=== PATIENT | female | born 1970 | race Caucasian/White ===

== ENCOUNTER → 2020-05-15 | Outpatient (CLI) | payer OTHER ==
--- NOTE | 2020-05-15 13:21 | CT ---
EXAMINATION TYPE: CT sinus wo con DATE OF EXAM: 05/15/2020 COMPARISON: None HISTORY: Chronic sinusitis CT DLP: 615.[address] of the paranasal sinuses was performed in the axial and coronal planes. Bone and soft tissue settings are submitted. The paranasal sinuses demonstrate normal aeration and development. Mucoperiosteal thickening noted. No air-fluid levels identified. The osteal meatal units are patent bilaterally. Mild nasal septal deviation from right to left. No bony destructive changes are seen within the field of view. IMPRESSION: Mucoperiosteal thickening noted. No air-fluid levels identified.
== END | disposition home or self-care (01) ==
LOC: RADCTMAIN 12:56
PROVIDERS: ATTEND Otolaryngology
DX: J32.9 Chronic sinusitis, unspecified (principal)
CPT/HCPCS: 70486

== ENCOUNTER 2020-06-04 08:16 | Day surgery (SDC) | payer OTHER ==
[2020-06-02 10:50] VITALS: BMI 23.1
[~2020-06-04 08:16] MED LIST: DEXAMETHASONE SOD PHOSPHATE 10 MG/ML 1 ML VIAL IV ONE; FAMOTIDINE 20 MG/2 ML VIAL IV ONE; LACTATED RINGERS 1,000 ML IV SCH; LIDOCAINE 1% (10MG/ML) FOR IV START INTRADERMA PRN; ONDANSETRON 4 MG/2 ML VIAL IVP ONE; Pre Op ABX Message 1 EACH MISC MISCELLANE ONE
[2020-06-04] MEDS ORDERED: ONDANSETRON 4 MG/2 ML VIAL ONE (08:40)
[2020-06-04] MEDS ORDERED: OXYMETAZOLINE 0.05% NASL SPRAY 1 SPRAY BOTTLE ONE (08:40)
[2020-06-04] MEDS ORDERED: MIDAZOLAM 2 MG/2 ML VIAL IV ONE (08:55)
[2020-06-04] MEDS ORDERED: SCOPOLAMINE 1.5MG/72HR PATCH TRANSDERM ONE (09:48)
[2020-06-04] MEDS ORDERED: fentaNYL (PF) 50 MCG/ML 2 ML AMP ONE (10:06)
[2020-06-04] MEDS ORDERED: LIDOCAINE 1% INJ 10MG/ML (20 ML MDV) ONE (10:06)
[2020-06-04] MEDS ORDERED: DEXAMETHASONE SOD PHOSPHATE 10 MG/ML 1 ML VIAL ONE (10:06)
[2020-06-04] MEDS ORDERED: SUCCINYLCHOLINE CHLORIDE 100 MG/5 ML SYR IV ONE (10:06)
[2020-06-04] MEDS ORDERED: METOPROLOL TARTRATE 5 MG/5 ML VIAL IVP ONE (10:06)
[2020-06-04] MEDS ORDERED: PROPOFOL 10 MG/ML 20 ML VIAL IV ONE (10:06)
[2020-06-04] MEDS ORDERED: MIDAZOLAM 2 MG/2 ML VIAL ONE (10:06)
[2020-06-04] MEDS ORDERED: LIDOCAINE 1%-EPI 1:100,000 20 ML VIAL SQ ONE ×2 (10:32)
[2020-06-04] MEDS ORDERED: EPINEPHrine 1 MG/ML (MDV) 30 ML VIAL IRRIGATION ONE (10:32)
[2020-06-04] MEDS ORDERED: FLUORESCEIN STRIPS 1 MG STRIP MISCELLANE ONE (10:32)
[2020-06-04] MEDS ORDERED: BUPIVACAINE (PF) 0.5% 30 ML VIAL SQ ONE ×2 (10:32)
[2020-06-04] MEDS ORDERED: FERRIC SUBSULFATE (MONSELS) JAR TOPICAL ONE (10:47)
[2020-06-04] MEDS: HYDROmorphone 0.5 MG/0.5 ML SYRINGE IVP PRN ×2 (11:46→11:52)
[2020-06-04] MEDS ORDERED: diphenhydrAMINE 50 MG/ML 1 ML VIAL IVP ONE (11:54)
[2020-06-04] MEDS: LABETALOL 5 MG/ML VIAL MDV IVP ONE ×2 (11:56→12:04)
[2020-06-04] MEDS ORDERED: amLODIPine 10 MG TAB PO PRN (11:58)
[2020-06-04 12:03] VITALS: TEMP 97.6
[2020-06-04] MEDS ORDERED: LACTATED RINGERS 1,000 ML IV ONE (12:04)
--- NOTE | 2020-06-04 12:05 | P.OP ---
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 verrucous Septoplasty Bilateral outfracture the inferior nasal turbinates Bilateral functional endoscopic sinus surgery with bilateral maxillary antrostomies, total ethmoidectomies and sphenoid sinusotomies with removal of diseased tissue Anesthesia: PONCHO Surgeon: Salvador Aguayo Estimated Blood Loss (ml): 10 Pathology: other (Sinonasal) Condition: stable Disposition: PACU Indications for Procedure: This patient presented to the office with bilateral nasal masses which appeared to be verrucous in etiology. They were located on the inner vestibule of the rim of the nose. She wishes to have them removed. She is also has a history of a lifetime of sinus problems with constant drainage often yellowish-green. She been on multiple antibiotics, cortisone nasal sprays, antihistamines, mobile [id number] medications with no improvement. She is quite frustrated because she is a chronic mouth breather and she has constant yellow and green drainage from her sinuses. She wishes correction. All risks, benefits, and alternative therapies were discussed. Consent was obtained and all questions were answered. Operative Findings: Patient had bilateral nasal masses which appeared to represent verrucous lesions. In addition she had a severely deviated nasal septum to the left with significant nasal obstruction. 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 In addition review the CAT scan shows mucoperiosteal thickening of the maxillary ethmoid and sphenoid sinuses. Surgical correction was recommended. Description of Procedure: Preoperatively the patient had her consent reviewed. All risks, benefits, and alternative therapies were discussed and all questions were answered. The patient was informed of the procedure and a confirmatory fashion and was in agreement to proceed forward. In the operating room a timeout was performed and all issues were reviewed with the operating room staff. The patient underwent a general inhalation anesthetic and intubated by the department of anesthesia and also monitored throughout the entire case by the department of anesthesia. A functioning IV line was in place. The patient was positioned in the supine position with slight reverse Trendelenburg. Preoperatively she had Afrin nasal spray. We then injected the septum, lateral nasal wall, turbinates with lidocaine 1% with epinephrine 1 100,000. Approximately 10 minutes were allowed wait for full vasoconstrictive effects to take place. The rim of the nose was injected with lidocaine and Marcaine with epinephrine. We excised the bilateral nasal masses with use of a 15 blade and hemostasis was obtained with use of Monsel solution. Excellent hemostasis was obtained. These bilateral nasal lesions were sent for pathology. A caudal incision was made over the caudal portion of the left septum down to the mucoperichondrium. A mucoperichondrial flap was developed with use of tunnels inferiorly and superiorly. We identified the deviation and with use of crosshatching incisions and removal of some redundant strips of septal cartilage, the septum was placed back in the midline in excellent position relieving this patient of this deviated nasal septum. We closed the incision with a 40 rapid Vicryl and a quilting stitch was used to reapproximate the septal flap. The septum was corrected and a swing door type fashion. The septum was sutured fixated to the vomer area and groove with use of a 40 rapid Vicryl. Attention was then paid to the middle turbinates which were brought medial. The uncinate process was visualized and reflected forward with a Lyon probe. With the use of an endoscope utilizing 0 30 and 90 we perform this procedure and utilize this endoscope on a video camera throughout the entire procedure. This was with use of a Jameson mayra scope. We then took down the uncinate process with a pediatric backbiter and a microdebrider. After the uncinate process was removed the maxillary sinuses were opened widely with use of a straight boss. We open the maxillary sinuses widely and into the maxillary sinuses with endoscopic visualization. Diseased tissue was removed from the maxillary sinuses bilaterally and the sinuses were opened bilaterally. After the maxillary sinuses were opened and diseased tissue was removed attention was then paid to the ethmoid bulla. From a medial to lateral position we took down the ethmoid bulla. We identified the roof of the maxillary sinus and the inferior attachment of the superior turbinate and then took down the basal lamella and into the posterior ethmoid air cells. We did a total ethmoidectomy with use of an up-biting boss. Excellent results were obtained. Diseased tissue was found in the ethmoid sinuses and removed. We then entered the sphenoid sinus underneath the inferior attachment of the superior turbinate. The sphenoid sinus was opened with the microdebrider and diseased tissue was removed from each sphenoid sinus. This was done Bilaterally. This was also done with use of endoscopic visualization. After these sinuses were opened and all sinuses explored and all sinuses had diseased tissue removed, FloSeal was i njected into this region. After the FloSeal was injected we then placed a half of a nasal pore under each middle turbinate to prevent lateralization. Excellent hemostasis was obtained throughout the entire case and very low blood was noted. The skull base and orbital sierra looked good. We reinspected the sinonasal region and no bleeding was encountered. The patient was then taken to postanesthesia recovery in excellent condition. A follow-up is scheduled for next week. The patient is to contact me if there is any problems or issues.
[2020-06-04 12:59] VITALS: BP 124/74; PULSE 105; RESP 18
[2020-06-05] MEDS ORDERED: MELOXICAM 7.5 MG TAB PO SCH (09:00)
== END 2020-06-04 13:34 | disposition home or self-care (01) ==
LOC: OR 08:16
PROVIDERS: ATTEND Otolaryngology
DX: J32.8 Other chronic sinusitis (principal); J34.2 Deviated nasal septum; J34.89 Other specified disorders of nose and nasal sinuses; B07.8 Other viral warts; K21.9 Gastro-esophageal reflux disease without esophagitis; J34.3 Hypertrophy of nasal turbinates; J45.909 Unspecified asthma, uncomplicated; Z88.0 Allergy status to penicillin; Z79.51 Long term (current) use of inhaled steroids; Z79.899 Other long term (current) drug therapy; Z90.710 Acquired absence of both cervix and uterus; Z90.89 Acquired absence of other organs; Z87.891 Personal history of nicotine dependence; Z83.3 Family history of diabetes mellitus; Z82.61 Family history of arthritis; Z82.5 Family history of asthma and other chronic lower respiratory diseases; Z80.3 Family history of malignant neoplasm of breast; Z80.0 Family history of malignant neoplasm of digestive organs; Z83.79 Family history of other diseases of the digestive system; Z81.8 Family history of other mental and behavioral disorders
CPT/HCPCS: 31259; 30520; 31267; 88305; 88300; J0171; J2250; J1200; J1100; J2405; J2001; J3010; J0330; J2704; J1170